=== PATIENT | male | born 1995 | race Caucasian/White ===

== ENCOUNTER 2018-06-28 13:28 | Emergency (ER) | payer OTHER ==
[2018-06-28] MEDS ORDERED: Acetaminophen/oxyCODONE 325-5 MG Tab PO ONE (14:32)
--- NOTE | 2018-06-28 15:03 | EDM.PDOC ---
ED HPI GENERAL MEDICAL PROBLEM - General Chief Complaint: Upper Extremity Injury/Pain Stated Complaint: STAPLE THROUGH LEFT HAND THUMB Time Seen by Provider: 06/28/18 14:26 Source of Information: Reports: Patient, RN Notes Reviewed - History of Present Illness INITIAL COMMENTS - FREE TEXT/NARRATIVE: 23-year-old male got a staple into his left thumb. He was stapling a cabinet at [employer] where he works and accidentally stapled his thumb. He is up-to-date with tetanus. Having moderate discomfort at this time area of injury. Left Finger-Thumb Pain Score (Numeric/FACES): 2 - Related Data Allergies Allergy/AdvReac Type Severity Reaction Status Date / Time No Known Allergies Allergy Verified 05/28/18 11:55 Home Meds: Home Meds . [No Known Home Meds] 05/28/18 [History] Past Medical History HEENT History: Reports: Other (See Below) Other HEENT History: wisdom teeth removed - Infectious Disease History Infectious Disease History: Reports: Chicken Pox Social & Family History - Family History Family Medical History: Noncontributory - Tobacco Use Smoking Status *Q: Current Every Day Smoker Years of Tobacco use: 1 Packs/Tins Daily: 0.5 - Caffeine Use Caffeine Use: Reports: Coffee - Recreational Drug Use Recreational Drug Use: No Review of Systems - Review of Systems Review Of Systems: See Below Respiratory: Denies: Shortness of Breath Cardiovascular: Denies: Chest Pain GI/Abdominal: Denies: Vomiting Musculoskeletal: Reports: Other (Stable injury to left thumb) ED EXAM, GENERAL - Physical Exam Exam: See Below General Appearance: Alert, No Apparent Distress Head: Atraumatic Respiratory/Chest: No Respiratory Distress Extremities: Other (There is a smooth long industrial type aris stapled into the distal volar left thumb. This is penetrating clear through the thumb with a moderate amount of staple sticking out the other side. No active bleeding. No visible deformity.) Course - Vital Signs Last Recorded V/S: Last Vital Signs Temp 99.1 F 06/28/18 13:40 Pulse 86 06/28/18 13:40 Resp 16 06/28/18 13:40 BP 129/75 06/28/18 13:40 Pulse Ox 96 06/28/18 13:40 - Orders/Labs/Meds Meds: Medications Discontinued Medications Generic Name Dose Route Start Last Admin Trade Name Freq PRN Reason Stop Dose Admin Oxycodone/Acetaminophen 1 tab 06/28/18 14:32 06/28/18 14:41 Percocet 325-5 Mg PO 06/28/18 14:33 1 tab ONETIME ONE Administration - Re-Assessments/Exams Free Text/Narrative Re-Assessment/Exam: 06/28/18 19:04 Patient was given a Percocet orally. We waited about one half hour and then I was able to remove the staple without difficulty. Slight bleeding only after staple removal controlled by pressure. Discharge instructions as documented. Departure - Departure Time of Disposition: 15:37 Disposition: Home, Self-Care 01 Condition: Fair Clinical Impression: Foreign body (FB) in soft tissue - Discharge Information Instructions: Hand or Foot Foreign Body, Adult Referrals: PCP,None [Primary Care Provider] - Forms: ED Department Discharge Additional Instructions: Leave Band-Aids on until tomorrow morning, then change once or twice daily applying small amount of antibiotic ointment to each puncture wound, ice packs and elevation as needed for swelling, Tylenol or ibuprofen as needed for discomfort, have rechecked any sign of infection.
== END 2018-06-28 15:50 | disposition home or self-care (01) ==
LOC: JD.ED 13:28
DX: S60.352A Superficial foreign body of left thumb, initial encounter (principal); F17.210 Nicotine dependence, cigarettes, uncomplicated; W45.8XXA Other foreign body or object entering through skin, initial encounter
CPT/HCPCS: 99283; A9270; 10120